=== PATIENT | male | born 1995 | race Caucasian/White ===

== ENCOUNTER 2025-07-04 19:02 | Emergency (ER) | payer OTHER ==
[2025-07-04] MEDS: Benzocaine 20% Topical Spray UD MUCMEM ONE (19:42)
[2025-07-04] MEDS: Lidocaine 2% Viscous Solution 15 ML UD PO ONE (19:42)
[2025-07-04] MEDS: Amoxicillin/Clavulanate K 875-125 MG Tab PO ONE (19:43)
[2025-07-04] MEDS: Acetaminophen/oxyCODONE 325-10 MG Tab PO ONE (19:43)
== END 2025-07-04 19:55 | disposition home or self-care (01) ==
LOC: MW.ED 19:02
DX: K08.89 Other specified disorders of teeth and supporting structures (principal)
CPT/HCPCS: 99282; A9270; J3490; 99283